=== PATIENT | male | born 1950 | race Native Hawaiian/Other Pacific Islander ===

== ENCOUNTER 2017-04-17 16:32 | Outpatient (CLI) | payer OTHER ==
[~2017-04-17 16:32] MED LIST: CITALOPRAM10 MG PO; MELOXICAM15 MG OR; NEXIUM40 M1 PO
== END 2017-04-17 19:03 | disposition home or self-care (01) ==
LOC: US 16:32
DX: R60.0 Localized edema (principal)

== ENCOUNTER 2017-11-20 05:15 | Emergency (ER) | payer OTHER ==
[2017-11-20 06:47] VITALS: BP 123/70; TEMP 97.9
== END 2017-11-20 06:48 | disposition home or self-care (01) ==
LOC: ED 05:15
DX: R35.8 Other polyuria (principal); R30.0 Dysuria
CPT/HCPCS: 81000; 99282

== ENCOUNTER 2020-12-15 13:46 | Outpatient (CLI) | payer OTHER | END 2020-12-15 20:20 | disposition home or self-care (01) | LOC: MRI 13:46 | PROVIDERS: ATTEND Nurse Practitioner Family | DX: M25.511 Pain in right shoulder (principal); R20.0 Anesthesia of skin ==

== ENCOUNTER 2022-11-21 15:22 | Outpatient (CLI) | payer OTHER | END 2022-11-21 19:11 | disposition home or self-care (01) | LOC: US 15:22 | PROVIDERS: ATTEND Nurse Practitioner Family | DX: R60.0 Localized edema (principal) ==

== ENCOUNTER 2022-11-22 09:16 | Outpatient (CLI) | payer OTHER | END 2022-11-22 21:44 | disposition home or self-care (01) | LOC: US 09:16 | PROVIDERS: ATTEND Nurse Practitioner Family | DX: R60.0 Localized edema (principal) ==